=== PATIENT | male | born 1950 | race Caucasian/White ===

== ENCOUNTER → 2017-03-05 11:33 | Outpatient (CLI) | payer MEDICARE, BC ==
[2014-07-23 12:16] VITALS: BMI 28.7
[~2017-03-05 11:33] MED LIST: LIALDA1.2 G PO
== END | disposition home or self-care (01) ==
LOC: D.CT 11:33
DX: R10.9 Unspecified abdominal pain (principal)

== ENCOUNTER 2018-11-25 15:11 | Inpatient (IN) | payer MEDICARE, BC ==
[~2018-11-25] VITALS: Ht 177.8 cm; Wt 85.7 kg
[2018-11-25] MEDS ORDERED: AZULFIDINE ENT500 MG (15:40)
[2018-11-25] MEDS ORDERED: CINNAMON500 MG PO (15:44)
[2018-11-25] MEDS ORDERED: RED YEAST RICE600 MG PO (15:44)
[2018-11-25] MEDS ORDERED: CO Q-10100 MG PO (15:45)
[2018-11-25 16:08] LABS: BASOPHILS 0.1 % (0-2); EOSINOPHILS 1.6 % (0-7); HEMATOCRIT 39.8 % (42.0-54.0); HEMOGLOBIN 13.7 g/dL (13.5-17.5); IMMATURE GRANULOCYTES 0.3 % (0-5); MCH 31.6 pg (26.0-34.0); MCHC 34.4 g/dL (31.0-37.0); MCV 91.7 fL (80.0-100.0); MEAN PLATELET VOLUME 10.2 fL (7.4-10.4); MONOCYTES 7.7 % (2-11); NEUTROPHILS 82.3 % (40-80); PLATELET COUNT 195 10x3/uL (130-400); RBC 4.34 10x6/uL (4.20-6.10); RDW 13.6 % (11.5-14.5); WBC 8.7 10x3/uL (4.8-10.8)
[2018-11-25 16:26] LABS: ALBUMIN 2.8 g/dL (3.4-5.0); ANION GAP 11.4 mmol/L (8-16); BILIRUBIN - TOTAL 2.1 mg/dL (0.2-1.3); CALCIUM 8.4 mg/dL (8.5-10.1); CARBON DIOXIDE 30.6 mmol/L (21.0-32.0); CREATININE - SERUM 1.7 mg/dL (0.6-1.3); PROTEIN - SERUM 7.2 g/dL (6.4-8.2)
[2018-11-25 16:28] LABS: APPEARANCE CLEAR (CLEAR); BILIRUBIN NEGATIVE (NEGATIVE); COLOR YELLOW (YELLOW); GLUCOSE NEGATIVE (NEGATIVE); KETONE NEGATIVE (NEGATIVE); MAGNESIUM - SERUM 2.2 mg/dL (1.8-2.4); NITRITE NEGATIVE (NEGATIVE); PROTEIN TRACE mg/dL (NEGATIVE); UROBILINOGEN NORMAL (NORMAL)
[2018-11-25 18:16] VITALS: BP 115/53
--- NOTE | 2018-11-25 19:05 | NUR ---
PT TO CT AT THIS TIME.
--- NOTE | 2018-11-25 19:06 | NUR ---
PT REPORT HANDED OFF FROM CHAPINCITO SIMMONS RN. PT STABLE AT THIS TIME, CALL LIGHT WITHIN REACH WILL CONTINUE TO MONITOR.
[2018-11-25 19:15] VITALS: BP 153/78
[2018-11-25 20:00] VITALS: BP 119/54
[2018-11-25 20:12] VITALS: BP 164/77
--- NOTE | 2018-11-25 21:03 | NUR ---
REPORT CALLED TO NURSE DEBORAH. ROOM 5064
--- NOTE | 2018-11-25 21:03 | NUR ---
REPORT RECIEVED FROM CATHY IN ER.
--- NOTE | 2018-11-25 22:17 | NUR ---
PT ARRIVED TO ROOM 2135 FROM ER ACCOMPANIED BY . AMBULATORY, ABLE TO GET IN BED ON HIS OWN. IV FLAGYL UP AND INFUSING. PT'S WANTING TO KNOW WHEN PT WILL BE ABLE TO GET HIS AZULFIDINE MED. STATES ER TOLD THEM IT WOULD BE GIVEN ON THE FLOOR. EXPLAINED TO PATIENT THAT DR PANDEY WOULD HAVE TO BE CONTACTED FOR MED CONTINUATION DUE TO IT NOT BEING ORDERED AN ADMIT ORDER. CALL TO DR PANDEY AND RECIEVED ORDER TO CONTINUE HOME MED OF AZULFIDINE. ADMISSION HISTORY AND ASSESSMENT COMPLETED. HOME MEDS UPDATED. PLAN OF CARE INTIATED.
[2018-11-26 00:25] VITALS: BP 142/76
[2018-11-26 02:09] VITALS: BP 164/77; BMI 27.0
[2018-11-26 04:25] VITALS: BP 100/57
[2018-11-26 05:24] LABS: BASOPHILS 0.3 % (0-2); EOSINOPHILS 1.3 % (0-7); HEMATOCRIT 36.3 % (42.0-54.0); HEMOGLOBIN 12.5 g/dL (13.5-17.5); IMMATURE GRANULOCYTES 0.5 % (0-5); LYMPHOCYTES 10.1 % (15-50); MCH 31.3 pg (26.0-34.0); MCHC 34.4 g/dL (31.0-37.0); MCV 90.8 fL (80.0-100.0); MONOCYTES 9.3 % (2-11); NEUTROPHILS 78.5 % (40-80); PLATELET COUNT 215 10x3/uL (130-400); RDW 13.9 % (11.5-14.5); WBC 7.5 10x3/uL (4.8-10.8)
--- NOTE | 2018-11-26 05:27 | NUR ---
2ND DOSE OF FLAGYL UP AND INFUSING. PT RESTING WITH NO DISTRESS. MONITOR AND CPOC.
[2018-11-26 06:35] LABS: ALBUMIN 2.4 g/dL (3.4-5.0); ANION GAP 14.2 mmol/L (8-16); BILIRUBIN - TOTAL 1.15 mg/dL (0.2-1.3); CALCIUM 8.3 mg/dL (8.5-10.1); POTASSIUM - SERUM 3.2 mmol/L (3.5-5.1); PROTEIN - SERUM 6.4 g/dL (6.4-8.2)
[2018-11-26 06:39] LABS: CREATININE - SERUM 1.2 mg/dL (0.6-1.3)
--- NOTE | 2018-11-26 07:00 | NUR ---
RECEIVED REPORT. ASSUMED CARE OF PATEINT. CALL LIGHT WITHIN REACH. PATIENT AWAKE, LYING IN BED. FEMALE AT BEDSIDE WITH PATIENT. PATIENT STATES HE WAS UP ALL NOC URINATING. DENIES NEEDS AT THIS TIME. NO DISTRESS.
[2018-11-26] MEDS ORDERED: AZULFIDINE500 MG PO (08:28)
[2018-11-26 08:41] VITALS: BP 95/53
--- NOTE | 2018-11-26 11:45 | NUR ---
FRESH ICE WATER PROVIDED TO PATIENT. VISITORS AT BEDSIDE. PATIENT DENIES ANY NEEDS AT THIS TIME. CALL LIGHT WITHIN REACH. NO DISTRESS.
[2018-11-26 12:28] VITALS: BMI 27.1
[2018-11-26 14:12] VITALS: Ht 177.8 cm; Wt 85.7 kg
--- NOTE | 2018-11-26 14:22 | NUR ---
PT NOT NPO PER FAMILY AND HAS HIS GB STILL / GAVE INSTRUCTIONS TO KEEP NPO AFTER MIDNIGHT AND I WILL GO AND PUT NPO SIGN ON DOOR / GCAPHOEBE,RDMS
[2018-11-26 14:25] LABS: % SATURATION 24 % (15-55); IRON 45 ug/dl (35-150); TOTAL IRON BIND CAPACITY 185 ug/dl (260-445); UNSAT IRON BIND CAPACITY 140 ug/dl (150-375)
--- NOTE | 2018-11-26 15:02 | NUR ---
medicated for headache at this time.
--- NOTE | 2018-11-26 15:20 | NUR ---
K+ SUPPLEMENT ADMINISTERED FOR LOW K+ AT THIS TIME.
--- NOTE | 2018-11-26 19:30 | NUR ---
ROUNDS COMPLETED. VSS, WITH SLIGHTLY ELEVTAED TEMP. OF 100.1. AAOX4, NO S/S OF RR DISTRESS. AT BEDSIDE. MEDS GIVEN AT THIS TIME. PT STATES HE IS JUST TRYING TO REST AT THE MOMENT. WILL CPOC. CL IN REACH, BED IN LOW, SR UPX2.
[2018-11-26 20:00] VITALS: BP 134/70
--- NOTE | 2018-11-26 20:45 | NUR ---
2TABS 325MG OF TYLENOL GIVEN TO PT AT THIS TIME. WILL CTM.
--- NOTE | 2018-11-26 21:36 | NUR ---
REASSESED PT TEMP. PT TEMP NOW 99.9 WILL CTM, AT BEDSIDE.
[2018-11-27] VITALS: BP 120/64
--- NOTE | 2018-11-27 02:42 | NUR ---
PT PLACED ON TELEMETRY. WILL CPOC.
[2018-11-27 04:00] VITALS: BP 126/71
[2018-11-27 05:47] LABS: BASOPHILS 0.3 % (0-2); EOSINOPHILS 1.3 % (0-7); HEMATOCRIT 36.3 % (42.0-54.0); HEMOGLOBIN 12.4 g/dL (13.5-17.5); IMMATURE GRANULOCYTES 0.5 % (0-5); LYMPHOCYTES 12.5 % (15-50); MCH 31.2 pg (26.0-34.0); MCHC 34.2 g/dL (31.0-37.0); MCV 91.2 fL (80.0-100.0); MEAN PLATELET VOLUME 9.9 fL (7.4-10.4); MONOCYTES 8.4 % (2-11); RBC 3.98 10x6/uL (4.20-6.10); RDW 13.8 % (11.5-14.5); WBC 7.5 10x3/uL (4.8-10.8)
[2018-11-27 06:14] LABS: HEPATITIS C ANTIBODY <0.1 S/CO RAT (0.0-0.9)
[2018-11-27 06:23] LABS: ALBUMIN 2.4 g/dL (3.4-5.0); ALKALINE PHOSPHATASE 176 U/L (46-116); BILIRUBIN - TOTAL 0.84 mg/dL (0.2-1.3); CALCIUM 8.2 mg/dL (8.5-10.1); CARBON DIOXIDE 26.1 mmol/L (21.0-32.0); CHLORIDE - SERUM 101 mmol/L (98-107); CREATININE - SERUM 0.9 mg/dL (0.6-1.3); GLUCOSE 128 mg/dL (74-106); POTASSIUM - SERUM 3.4 mmol/L (3.5-5.1); PROTEIN - SERUM 6.2 g/dL (6.4-8.2); SODIUM 137 mmol/L (136-145); eGFR NON AFRICAN AMERICAN 89 mL/min (90-120)
[2018-11-27 06:25] LABS: ALT (SGPT) 145 U/L (10-68); CALC OSMOLALITY 274 mosm/kg (275-300); UREA NITROGEN 10 mg/dL (7-18)
[2018-11-27 07:29] LABS: FOLATE (FOLIC ACID) - SERUM 3.9 ng/mL (>3.0)
[2018-11-27 07:37] LABS: PLATELET COUNT 272 10x3/uL (130-400)
--- NOTE | 2018-11-27 08:00 | NUR ---
PT RESTING IN BED. SHIFT ASSESSMENT PERFORMED. PT CONTINUES TO BE NPO FOR ULTRASOUND AND MRI. DENIES ANY PAIN AT THIS TIME, DENIES ANY OTHER NEEDS AT THIS TIME, CALL LIGHT IN REACH. SPOUSE AT BEDSIDE
[2018-11-27 08:34] VITALS: BP 115/70
[2018-11-27 11:31] VITALS: BP 124/60
--- NOTE | 2018-11-27 12:30 | NUR ---
PT TOLERATED REGULAR DIET WELL, NO COMPLAINTS OF N/V. DENIES PAIN AT THIS TIME, DENIES ANY OTHER NEEDS AT THIS TIME
[2018-11-27 16:17] VITALS: BP 110/47
--- NOTE | 2018-11-27 17:33 | NUR ---
PT RESTING IN BED. SPOUSE AT BEDSIDE. DENIES PAIN AT THIS TIME, DENIES ANY OTHER NEEDS AT THIS TIME, CALL LIGHT WITHIN REACH. WILL CONT TO FOLLOW PLAN OF CARE
--- NOTE | 2018-11-27 19:05 | NUR ---
BED LOW AND SRX2 CALL LIGHT IS IN REACH FAMILY IS AT THE BEDSIDE. LCTA AND BOWEL SOUNDS X4 DENIES ABD PAIN AT THIS TIME
[2018-11-27 20:00] VITALS: BP 115/62
--- NOTE | 2018-11-27 22:10 | NUR ---
REBECCA 3.6 NO PROTOCAL DOSE NEEDED
[2018-11-28 00:30] VITALS: BP 125/75
--- NOTE | 2018-11-28 04:38 | NUR ---
I have reviewed this patient and I concur with the Shift Assessment completed by the Licensed Practical Nurse today this shift.
[2018-11-28 05:00] VITALS: BP 125/75
[2018-11-28 07:09] LABS: BASOPHILS 0.5 % (0-2); EOSINOPHILS 2.1 % (0-7); HEMATOCRIT 37.4 % (42.0-54.0); HEMOGLOBIN 12.7 g/dL (13.5-17.5); IMMATURE GRANULOCYTES 0.9 % (0-5); LYMPHOCYTES 23.1 % (15-50); MCH 30.8 pg (26.0-34.0); MCV 90.8 fL (80.0-100.0); MEAN PLATELET VOLUME 9.4 fL (7.4-10.4); MONOCYTES 16.3 % (2-11); NEUTROPHILS 57.1 % (40-80); PLATELET COUNT 278 10x3/uL (130-400); RBC 4.12 10x6/uL (4.20-6.10); RDW 13.7 % (11.5-14.5)
[2018-11-28 07:31] LABS: ALBUMIN 2.3 g/dL (3.4-5.0); ALKALINE PHOSPHATASE 166 U/L (46-116); ALT (SGPT) 109 U/L (10-68); AMYLASE - SERUM 125 U/L (25-115); BILIRUBIN - DIRECT 0.28 mg/dL (0.00-0.30); BILIRUBIN - TOTAL 0.58 mg/dL (0.2-1.3); CALC OSMOLALITY 275 mosm/kg (275-300); CALCIUM 8.5 mg/dL (8.5-10.1); CARBON DIOXIDE 25.3 mmol/L (21.0-32.0); CHLORIDE - SERUM 102 mmol/L (98-107); CREATININE - SERUM 0.8 mg/dL (0.6-1.3); GLUCOSE 150 mg/dL (74-106); LIPASE 1241 U/L (73-393); PROTEIN - SERUM 6.2 g/dL (6.4-8.2); SODIUM 137 mmol/L (136-145); UREA NITROGEN 11 mg/dL (7-18); eGFR NON AFRICAN AMERICAN > 90 mL/min (90-120)
[2018-11-28 07:53] LABS: WBC 5.6 10x3/uL (4.8-10.8)
[2018-11-28 08:32] VITALS: BP 114/67
[2018-11-28] MEDS ORDERED: LEVOFLOXACIN500 MG PO (11:59)
[2018-11-28] MEDS ORDERED: FLAGYL500 MG PO (11:59)
[2018-11-28] MEDS ORDERED: PROTONIX40 MG PO (11:59)
[2018-11-28 12:04] VITALS: BP 123/71
--- NOTE | 2018-11-28 14:12 | NUR ---
DISCHARGE ORDER RECIEVED. PT REQUEST THAT HIS PIV AND TELEMETRY BE REMOVED. PIV TO PT RIGHT HAND REMOVED WITH CATHETER TIP INTACT. TELEMETRY REMOVED AND GIVEN TO DAIRY FARM OPERATOR.
--- NOTE | 2018-11-28 14:45 | NUR ---
DISCHARGE INSTRUCTIONS REVIEWED WITH PT, ALL QUESTIONS ANSWERED.
--- NOTE | 2018-11-28 14:56 | NUR ---
PT TAKEN TO FRONT OF HOSPITAL AND LEFT WITH HIS
--- NOTE | 2018-11-28 16:35 | MORECARE ---
CASE MANAGEMENT DISCHARGE SUMMARY PATIENT: KARYN ARCOS UNIT: [id number] ADM DATE: 11/25/18 AGE: 68 : 48 SEX: M ROOM/BED: D.2135 AUTHOR: WINNIE CRUZ PHYSICIAN: REFERRING PHYSICIAN: LEONARD PANDEY MD DATE OF SERVICE: 11/28/18 Discharge Plan Patient Name: KARYN ARCOS Facility: [facility]:[place] : 1950 Planned Disposition: Home Anticipated Discharge Date: 11/28/18 Discharge Date: 11/28/2018 Expected LOS: 3 Initial Reviewer: [id number] Initial Review Date: 11/28/2018 Generated: 11/28/18 5:35 pm Coverage Notice Reviewer: [id number] - Sushant Reyes Notice Issued Date-Time: 11/28/2018 13:00 Notice Type: IM Discharge Notice Notice Delivered To: Patient Relationship to Patient: Continuous Improvement Facilitator Name: Delivery Method: HAND - Hand Delivered Adriana Days: Prior Verbal Notification: Recipient Understood Notice: Yes Recipient Signature: Yes Med Rec Note Co-signed by Attending: Coverage Notice Comment: Patient Name: KARYN ARCOS Page [id number] at 1635 All edits/amendments must be made on the electronic document DICTATION DATE: 11/28/18 1635 CELL INSPECTOR: ZOEY 11/28/18 1635 RPT#: [id number] DC DATE:11/28/18 STATUS: DIS IN [id number] [place] [address] END OF REPORT
--- NOTE | 2018-11-28 16:46 | MORECARE ---
CASE MANAGEMENT DISCHARGE SUMMARY PATIENT: KARYN ARCOS UNIT: [id number] ADM DATE: 11/25/18 AGE: 68 : 46 SEX: M ROOM/BED: D.6661 AUTHOR: NANCY,DOC PHYSICIAN: REFERRING PHYSICIAN: LEONARD PANDEY MD DATE OF SERVICE: 11/28/18 Discharge Plan Patient Name: KARYN ARCOS Facility: [facility]:[place] : 1950 Planned Disposition: Home Anticipated Discharge Date: 11/28/18 Discharge Date: 11/28/2018 Expected LOS: 3 Initial Reviewer: [email or web address] Initial Review Date: 11/28/2018 Generated: 11/28/18 5:46 pm Comments DCP- Discharge Planning Updated by [email or web address]: Sushant Reyes on 11/28/18 3:[address] Patient Name: KARYN ARCOS Encounter No: [id number] : 1950 Primary Insurance: MEDICARE A & B Anticipated DC Date: 11-28-2018 Planned Disposition: Home DCP NOTE: CM MET WITH PT IN ROOM TO DISCUSS DISCHARGE PLANNING AND NEEDS. KARYN ARCOS provided verbal consent to discuss current and ongoing needs with/in the presence of: SPOUSE, SERENA. PT REPORTS LIVING AT HOME INDEPENDENTLY WITH SPOUSE. PT HAS NO MEDICAL EQUIPMENT AND NO OUTSIDE SERVICES ASSISTING IN THE HOME. CM DISCUSSED AVAILABILITY OF HOME HEALTH, REHAB SERVICES AND MEDICAL EQUIPMENT. PT DENIES DISCHARGE NEEDS, REPORTS HIS SPOUSE IS HER TO PICK HIM UP FOR DISCHARGE HOME TODAY. IMPORTANT MESSAGE FROM MEDICARE PROVIDED AND EXPLAINED. ASSISTANT PRINTER FLOOR COVERING NURSE NOTIFIED. TAMMY Henderson DCPIA - Discharge Planning Initial Assessment Updated by [id number]: Sushant Reyes on 11/28/18 4:36 pm * Is the patient Alert and Oriented? Yes * How many steps to enter\exit or inside your home? NONE * PCP DR. RODRIGUEZ OR MICHAEL NAVARRO * Pharmacy [address] * Preadmission Environment Home with Family * ADLs Independent * Equipment None * Other Equipment NO MEDICAL EQUIPMENT PROVIDER PREFERENCE * List name and contact numbers for known caregivers / representatives who currently or will assist patient after discharge: ARNIE LIMA, * Verbal permission to speak to the caregivers and representatives has been obtained from the patient. Yes * Community resources currently utilized None * Please name any agencies selected above. NONE * Additional services required to return to the preadmission environment? No * Can the patient safely return to the preadmission environment? Yes * Has this patient been hospitalized within the prior 30 days at any hospital? No Coverage Notice Reviewer: [id number] Carrie Reyes Notice Issued Date-Time: 11/28/2018 13:00 Notice Type: IM Discharge Notice Notice Delivered To: Patient Relationship to Patient: Field Geologist Name: Delivery Method: HAND - Hand Delivered Adriana Days: Prior Verbal Notification: Recipient Understood Notice: Yes Recipient Signature: Yes Med Rec Note Co-signed by Attending: Coverage Notice Comment: Last DP export: 11/28/18 3:35 p Patient Name: KARYN ARCOS Page [id number] at 1646 All edits/amendments must be made on the electronic document DICTATION DATE: 11/28/181644 [employer] ADVISOR: ZOEY 11/28/181644 RPT#: [id number] DC DATE:11/28/18 STATUS: DIS IN [facility] [address] [place] [address] END OF REPORT
[2018-11-29 13:15] LABS: CEA 1.7 ng/mL (0.0-4.7)
== END 2018-11-28 15:06 | disposition home or self-care (01) | DRG 392 ==
LOC: D.ER 15:11 → D.EDHOLD 20:25 → D.M2 20:25
PROVIDERS: Family Medicine; Internal Medicine Gastroenterology; ADMIT Internal Medicine Nephrology; ATTEND Internal Medicine Nephrology
DX: K57.32 Diverticulitis of large intestine without perforation or abscess without bleeding (principal); R17 Unspecified jaundice; N17.9 Acute kidney failure, unspecified; E87.1 Hypo-osmolality and hyponatremia; K51.90 Ulcerative colitis, unspecified, without complications; E80.6 Other disorders of bilirubin metabolism; R74.0 Nonspecific elevation of levels of transaminase and lactic acid dehydrogenase [LDH]; E87.6 Hypokalemia; D50.9 Iron deficiency anemia, unspecified

== ENCOUNTER → 2019-01-10 11:53 | Outpatient (CLI) | payer MEDICARE, BC ==
[2018-11-26 14:12] VITALS: BMI 27.1
[~2019-01-10 11:53] MED LIST changes: +AZULFIDINE ENT500 MG; +AZULFIDINE500 MG PO; +CINNAMON500 MG PO; +CO Q-10100 MG PO; +FLAGYL500 MG PO; +LEVOFLOXACIN500 MG PO; +PROTONIX40 MG PO; +RED YEAST RICE600 MG PO
== END | disposition home or self-care (01) ==
LOC: D.LAB 11:53
PROVIDERS: ATTEND Urology
DX: N40.0 Benign prostatic hyperplasia without lower urinary tract symptoms (principal)

== ENCOUNTER → 2019-03-14 08:58 | Outpatient (CLI) | payer MEDICARE, BC ==
[2018-11-26 14:12] VITALS: BMI 27.1
[2019-03-14 09:25] LABS: BASOPHILS 0.2 % (0-2); EOSINOPHILS 0.4 % (0-7); HEMATOCRIT 43.7 % (42.0-54.0); IMMATURE GRANULOCYTES 0.2 % (0-5); LYMPHOCYTES 16.3 % (15-50); MCHC 34.3 g/dL (31.0-37.0); MEAN PLATELET VOLUME 9.9 fL (7.4-10.4); MONOCYTES 9.1 % (2-11); NEUTROPHILS 73.8 % (40-80); PLATELET COUNT 209 10x3/uL (130-400); RBC 4.55 10x6/uL (4.20-6.10); RDW 13.2 % (11.5-14.5); WBC 5.5 10x3/uL (4.8-10.8)
[2019-03-14 09:35] LABS: ALBUMIN 4.1 g/dL (3.4-5.0); BILIRUBIN - DIRECT 0.09 mg/dL (0.00-0.30); BILIRUBIN - INDIRECT 0.33 mg/dL (0.00-1.00); BILIRUBIN - TOTAL 0.42 mg/dL (0.2-1.3); PROTEIN - SERUM 7.4 g/dL (6.4-8.2)
== END | disposition home or self-care (01) ==
LOC: D.LAB 08:58
PROVIDERS: ATTEND Internal Medicine Gastroenterology
DX: K51.90 Ulcerative colitis, unspecified, without complications (principal); F19.90 Other psychoactive substance use, unspecified, uncomplicated

== ENCOUNTER → 2019-04-24 07:38 | Outpatient (CLI) | payer MEDICARE, BC ==
[2018-11-26 14:12] VITALS: BMI 27.1
== END | disposition home or self-care (01) ==
LOC: D.LAB 07:38
PROVIDERS: ATTEND Internal Medicine Gastroenterology
DX: K51.90 Ulcerative colitis, unspecified, without complications (principal)

== ENCOUNTER 2019-07-24 03:48 | Outpatient (CLI) | payer MEDICARE, BC ==
[~2019-07-24] VITALS: Ht 177.8 cm; Wt 83.6 kg
--- NOTE | ~2019-07-24 | HEMODYNAMI ---
PATIENT:KARYN ARCOS MEDICAL RECORD: [id number] : 46 LOCATION:[address] [facility]# [id number] ADMISSION DATE: 07/24/19 Generatedon:07/25/201914:08 Patient name: KARYN ARCOS Patient #: [id number] SSN: [id number] : 1950 Date of study: 07/25/2019 Page: Of Hemodynamic Procedure Report Patient Data Patient Demographics Procedure consent was obtained First Name: KARYN Gender: Male Last Name: ISRRAEL : 1950 [facility] Initial: Vishnu Age: 69 year(s) Patient #: [id number] Race: SSN: [id number] Additional ID: [id number] Contact details Address: [address] [place] [address] State: [place] City: [facility] Zip code: [address] Admission Admission Data Admission Date: 07/24/2019 Admission Time: 5:25 Arrival Date: 07/18/2019 Arrival Time: 5:25 Admit Source: Other Insurance Payor: Medicare Room #: D.2133 [facility] #: [id number] Height (in.): 70.08 BSA: 2.02 (m2) Height (cm.): 178 BMI: 26.51 (kg/m2) Weight (lbs.): 185.19 Weight (kg.): 84 Procedure Procedure Types Cath Procedure Diagnostic Procedure LHC LHC w/Coronaries Sedation Charges Moderate Sedation up to 30 minutes PCI Procedure Coronary Stent Coronary Stent Initial Procedure Description Procedure Date Procedure Date: 07/25/2019 Procedure Start Time: 13:22 Procedure End Time: 13:58 Procedure Staff Name Function Jair Mayer MD Performing Physician Shahida Campbell RT Monitor Marlen Kaplan RT Scrub Rogelio Stevenson RN Nurse Procedure Data Cath Procedure Fluoroscopy Diagnostic fluoroscopy Total fluoroscopy Time: time: 10.3 min 10.3 min Diagnostic fluoroscopy Total fluoroscopy dose: dose: 1373 mGy 1373 mGy Contrast Material Contrast Material Type Amount (ml) Isovue 300 111 Entry Location Entry Primary Successful Side Size Upsize Upsize Entry Closure Yates ccessful Closure Location (Fr) 1 (Fr) 2 (Fr) Remarks Device Remarks Radial Right 6 Fr Mechanical artery Short Compression Femoral Right 6 Fr 6 Fr 6 Fr Exoseal artery Short Long Short Estimated blood loss: 5 ml Diagnostic catheters Device Type Used For End Catheter Placement DIAGNOSTIC [place] 110cm 5 Multi-vessel Fr catheter ([id number]) Angiography DIAGNOSTIC JL 5 5Fr Left Coronary catheter ([id number]) Angiography DIAGNOSTIC Pigtail 5Fr Multi-vessel catheter (191277L) Angiography Procedure Complications No complications Procedure Medications Medication Administration Route Dosage Oxygen etCO2 Nasal cannula 2 l/min Lidocaine 2% added to field 20 Heparin Flush Bag added to field 2 bags (1000units/500ml NS) 0.9% NaCl I.V. 100 ml/hr Radial Cocktail I.A. 1 syringe (Verapamil 2mg/Nitro 400mcg/Heparin 1500units) Versed I.V. 1 mg Fentanyl I.V. 50 mcg Versed I.V. 1 mg Fentanyl I.V. 50 mcg Versed I.V. 1 mg Heparin Bolus I.V. 4000 units Integrilin (Bolus I.V. 7.3 ml 2mg/ml) Versed I.V. 1 mg Plavix P.O. 600 mg Hemodynamics Rest BSA: 2.02 (m2) O2 Consumption: Estimated: 223.13 (ml/min) O2 Consumption indexed : Estimated:110.46 (ml/min/m) Heart Rate: 56 (bpm) Pressure Samples Time Site Value (mmHg) Purpose Heart Use Rate(bpm) 13:45 LV 112/2,4 Snapshot 58 Gradients Valve Time Site Site Mean SEP/DFP Peak To Heart Use 1 2 (mmHg) (sec/min) Peak Rate (mmHg) (bpm) Aortic 13:45 LV AO 57 Snapshots Pre Cath Intra NCS Post Cath Vital Signs Time Heart Resp SPO2 etCO2 NIBP Rhythm Pain Sedation Rate (ipm) (%) (mmHg) (mmHg) Status Level (bpm) 13:13:24 60 12 92 4.4 127/72(99) NSR 0 (11) 10(A) , No pain 13:17:36 56 14 92 20.2 120/74(97) NSR 0 (11) 10(A) , No pain 13:21:46 57 14 93 17.9 130/74(96) NSR 0 (11) 10(A) , No pain 13:26:02 58 11 96 27.7 117/63(89) NSR 0 (11) 9(A) , No pain 13:30:14 54 12 96 9.7 111/63(87) NSR 0 (11) 9(A) , No pain 13:34:22 58 13 96 12.7 118/65(85) NSR 0 (11) 9(A) , No pain 13:38:33 56 10 98 12 116/65(88) NSR 0 (11) 9(A) , No pain 13:42:43 57 15 96 33.7 118/67(84) NSR 0 (11) 9(A) , No pain 13:46:56 59 15 95 39.7 111/66(91) NSR 0 (11) 9(A) , No pain 13:51:05 62 16 95 34.4 108/58(77) NSR 0 (11) 9(A) , No pain 13:55:13 61 13 97 31.4 91/64(79) NSR 0 (11) 10(A) , No pain 14:00:10 56 12 98 0 112/64(79) NSR 0 (11) 10(A) , No pain Medications Time Medication Route Dose Verified Delivered Reason Not es Effectiveness by by 13:13:27 Oxygen etCO2 2 l/min Jair Mercado used for Nasal St Rahat Stevenson RN procedure cannula 13:13:35 Lidocaine 2% added 20ml Jair Adam for local to vial [facility] anesthetic field MD FLOWERS 13:13:41 Heparin Flush added 2 bags Jair Adam used for Bag to [facility] procedure (1000units/500ml field MD FLOWERS NS) 13:13:49 0.9% NaCl I.V. 100 Jair Mercado Per physician ml/hr St Rahat Stevenson RN, MD 13:20:13 Versed I.V. 1 mg Jair Mercado for sedation St Rahat Stevenson RN, MD 13:20:18 Fentanyl I.V. 50 mcg Jair Mercado for sedation St Rahat Stevenson RN, MD 13:24:58 Radial Cocktail I.A. 1 Jair Adam for (Verapamil syringe St Rahat Mayer vasodilation 2mg/Nitro MD FLOWERS 400mcg/Heparin 1500units) 13:26:13 Versed I.V. 1 mg Jair Mercado for sedation St Rahat Stevenson RN, MD 13:26:17 Fentanyl I.V. 50 mcg Jair Mercado for sedation St Rahat Stevenson RN, MD 13:34:22 Versed I.V. 1 mg Jair Mercado for sedation St Rahat Stevenson RN, MD 13:46:47 Heparin Bolus I.V. 4000 Jair Mercado for ramiro ified units St Rahat Stevenson RN anticoagulation with dr MD shi 13:46:59 Integrilin I.V. 7.3 ml Jair Mercado for was mil (Bolus 2mg/ml) St Rahat Stevenson RN antiplatelet 2.7 ml therapy of vial 13:49:19 Versed I.V. 1 mg Jair Mercado for sedation St Rahat Stevenson RN, MD 14:03:06 Plavix P.O. 600 [address] for St Rahat Stevenson RN antiplatelet therapy Procedure Log Time Note 12:40:13 Rogelio Stevenson RN sent for patient. Start room use. 12:58:41 Informed consent obtained and on chart 12:58:55 Diagnostic Cath Status : Elective 12:59:18 Time tracking: Regular hours (M-F 7:00 - 5:00) 12:59:22 Plan of Care:Hemodynamics will remain stable., Cardiac rhythm will remain stable., Comfort level will be maintained., Respiratory function will remain adequate., Patient/ family verbilizes understanding of procedure., Procedure tolerated without complication., Recovers from procedure without complications.. 12:59:27 Patient received from Med II to CCL 2 Alert and oriented. Tansferred to table in Supine position. 12:59:28 Warm blankets applied, and javan hugger turned on for patient comfort. 12:59:28 Correct patient and procedure confirmed by team. 12:59:29 ECG and BP/O2 sat monitors applied to patient. 13:00:47 Admit Source: Other 13:00:49 Arrival Date: 07/18/2019 5:25:00 AM 13:01:21 Insurance Payor : Medicare 13:01:29 Patient Height : 70.08 inches 13:01:33 Patient Weight : 185.19 lbs 13:12:16 Vital chart was started 13:12:17 Baseline sample Acquired. 13:12:20 Rhythm: sinus rhythm 13:12:22 Full Disclosure recording started 13:12:27 H&P Date Dictated: 07/25/2019 New H&P dictated by physician.. 13:12:29 Pre-procedure instructions explained to patient. 13:12:29 Pre-op teaching completed and patient verbalized understanding. 13:12:32 Family in patients room. 13:12:34 Patient NPO since Midnight. 13:12:36 Is the patient allergic to Iodine/contrast media? No. 13:12:37 Was the patient premedicated? Yes 13:12:38 Is patient on blood thinner?No 13:12:40 Patient diabetic? Yes. 13:12:41 If diabetic: On Metformin? No 13:12:45 Previous problem with sedation/anesthesia? No ? 13:12:47 Snore? No 13:12:48 Sleep apnea? No 13:12:49 Deviated septum? No 13:12:56 Opens mouth fully? Yes 13:12:57 Sticks out tongue? Yes 13:12:59 Airway obstruction? No ? 13:13:01 Dentures? No ? 13:13:06 Pre procedure: right dorsailis pedis pulse 2+ Normal; easily identifiable; not easily obliterated 13:13:08 Pre procedure: left dorsailis pedis pulse 2+ Normal; easily identifiable; not easily obliterated 13:13:10 Patient pain scale 0/10 ?. 13:13:18 IV patent on arrival in left forearm with 0.9% NaCl at [facility]. 13:13:20 Lab results completed and on chart. 13:13:25 Stress Test: no; N/A ? 13:13:27 Oxygen 2 l/min etCO2 Nasal cannula was administered by Rogelio Stevenson RN; used for procedure; Verbal order read back and verified. 13:13:35 Lidocaine 2% 20ml vial added to field was administered by Jair Mayer MD; for local anesthetic; Verbal order read back and verified. 13:13:41 Heparin Flush Bag (1000units/500ml NS) 2 bags added to field was administered by Jair Mayer MD; used for procedure; Verbal order read back and verified. 13:13:49 0.9% NaCl 100 ml/hr I.V. was administered by Rogelio Stevenson RN; Per physician; Verbal order read back and verified. 13:19:08 Risk of Mortality: 2.1 13:19:11 Risk of blood transfusion: 0.3 13:19:16 Risk of JESSICA: 5.7 13:19:21 Right Radial & Right Groin area was prepped with chlora-prep and draped in sterile fashion 13:19:28 Alarms reviewed by R. N. 13:19:28 Sharps counted by scrub and verified by R.N. 13:19:29 Physician arrived 13:19:30 --------ALL STOP TIME OUT------ 13:19:30 Final Timeout: patient, procedure, and site verified with staff and physician. All members of the team are in agreement. 13:19:33 Right Radial & Right Groin site verified by team. 13:19:36 Fire Safety Assessment: A--An alcohol-based skin anteseptic being used preoperatively., C--Open oxygen or nitrous oxide is being used., D--An ESU, laser, or fiber-optic light is being used. 13:19:39 Physical assessment completed. ASA score P 2 - A patient with mild systemic disease as per Jair Mayer MD. 13:19:58 2) 60-89 Mildly reduced kidney function, and other findings (as for stage 1) point to kidney disease. 13:20:13 Versed 1 mg I.V. was administered by Rogelio Stevenson RN; for sedation; Verbal order read back and verified. 13:20:18 Fentanyl 50 mcg I.V. was administered by Rogelio Stevenson RN; for sedation; Verbal order read back and verified. 13:20:21 Maximum allowable contrast dose (3.7 X eGFR X 0.75)244 ml. 13:20:29 Sedation plan: IV Moderate Sedation Medication:Versed, Fentanyl 13:20:32 Use device set Radial Dx or PCI 13:20:33 ACIST Syringe (31845) opened to sterile field. 13:20:33 Medline Cath Pack ([id number]) opened to sterile field. 13:20:34 Bag Decanter () opened to sterile field. 13:20:34 ACIST Hand Control (29195) opened to sterile field. 13:20:34 ACIST Manifold (23388) opened to sterile field. 13:20:35 Tegaderm 4 x 4 (1626W) opened to sterile field. 13:20:36 MBrace Wrist Support (086985418) opened to sterile field. 13:20:47 SHEATH 6FR RAIN (2742432) opened to sterile field. 13:20:48 EMERALD Guide Wire (502-687) opened to sterile field. 13:20:59 Zero performed for pressure channel P1 13:22:07 Procedure started. 13:22:12 Local anesthetic to right radial artery with Lidocaine 2% by Jair Mayer MD.INITIAL ACCESS ONLY 13:23:37 A 6 Fr Short sheath was inserted into the Right Radial artery 13:24:21 A DIAGNOSTIC [place] 110cm 5 Fr catheter (023672) was advanced over the wire and used for Multi-vessel Angiography. 13:24:58 Radial Cocktail (Verapamil 2mg/Nitro 400mcg/Heparin 1500units) 1 syringe I.A. was administered by Jair Mayer MD; for vasodilation; Verbal order read back and verified. 13:26:10 LCA angiography performed. 13:26:13 Versed 1 mg I.V. was administered by Rogelio Stevenson RN; for sedation; Verbal order read back and verified. 13:26:17 Fentanyl 50 mcg I.V. was administered by Rogelio Stevenson RN; for sedation; Verbal order read back and verified. 13:28:25 GUIDE 6FR XBLAD 3.5 catheter ([id number]) opened to sterile field. 13:28:26 GUIDE 6FR HS I catheter (LA6HSI) opened to sterile field. 13:31:31 6 Fr XBLAD 3.5 guide catheter was inserted over the wire 13:31:35 Guide Catheter removed. unable to cannulate vessel. 13:31:53 6 Fr HS 1 guide catheter was inserted over the wire 13:31:58 RCA angiography performed. 13:32:06 Injector settings: Ml/sec: 3, Volume: 6, 13:32:52 SHEATH 6FR [place] (UPN568) opened to sterile field. 13:32:53 INFLATOR Merit BasixCompak (IT1126) opened to sterile field. 13:32:53 WHISPER 300cm guide wire ([id number]) opened to sterile field. 13:33:00 Catheter removed. 13:33:28 Local anesthetic to right femoral artery with Lidocaine 2% by Jair Mayer MD.ADDITIONAL ACCESS 13:33:46 A 6 Fr Short sheath was inserted into the Right Femoral artery 13:34:22 Versed 1 mg I.V. was administered by Rogelio Stevenson RN; for sedation; Verbal order read back and verified. 13:39:07 SHEATH 6FR [place] (RSR01) opened to sterile field. 13:39:15 Sheath upsized to a 6 Fr Long. 13:42:02 A DIAGNOSTIC JL 5 5Fr catheter ([id number]) was advanced over the wire and used for Left Coronary Angiography. 13:42:13 LCA angiography performed. 13:43:12 Catheter removed. 13:44:11 A DIAGNOSTIC Pigtail 5Fr catheter ([id number]) was advanced over the wire and used for Multi-vessel Angiography. 13:44:19 ACCDominant side:Right 13:45:09 LV hemodynamics recorded. 13:45:10 LV gram done using CORTES 13:45:13 Injector settings: Ml/sec: 5, Volume: 15, 13:45:23 EF : 55 % 13:45:34 Catheter removed. 13:45:57 Proceeding to intervention. 13:46:08 6 Fr HS 1 SH guide catheter was inserted over the wire 13:46:47 Heparin Bolus 4000 units I.V. was administered by Rogelio Stevenson RN; for anticoagulation; verified with dr shi Verbal order read back and verified. 13:46:59 Integrilin (Bolus 2mg/ml) 7.3 ml I.V. was administered by Rogelio Stevenson RN; for antiplatelet therapy; wasted 2.7 ml of vial Verbal order read back and verified. 13:49:08 GUIDE 6FR HS I SH catheter ([id number]) opened to sterile field. 13:49:19 Versed 1 mg I.V. was administered by Rogelio Stevenson RN; for sedation; Verbal order read back and verified. 13:49:41 WHISPER wire advanced. 13:50:14 Wire advanced across lesion. 13:51:24 Place stent Inflation Number: 1 A MENDOZA OTW 3.0 x 12 stent ([id number]) was prepped and advanced across the Prox RCA 80. The stent was deployed at 14 STACEY for 0:30 (min:sec) 0. 13:54:04 Stent catheter was removed intact over wire. 13:55:28 Place stent Inflation Number: 2 A MENDOZA RX 3.0 x 12 stent ([id number]) was prepped and advanced across the Prox RCA 80. The stent was deployed at 14 STACEY for 0:30 (min:sec) 0. 13:56:06 Stent catheter was removed intact over wire. 13:56:06 Wire removed. 13:56:07 Guide catheter removed. 13:56:23 Sheath upsized to a 6 Fr Short. 13:56:33 Sheath removed intact; hemostasis achieved with Exoseal to the Right Femoral artery. 13:56:40 [place] band inflated with 10cc of air. 13:56:40 ACT drawn and resulted at 210 seconds. (normal therapeutic range 180-240 seconds). 13:56:40 Sheath removed intact; hemostasis achieved with Mechanical Compression to the Right Radial artery. 13:56:42 Procedure ended.(Physican Out) 13:56:52 Fluoroscopy time 10.30 minutes. 13:56:56 Flurop Dose total: 1373 13:56:56 Fluoroscopy dose: 1373 mGy 13:57:03 Dose Area Product 78362 mGy/cm. 13:57:07 Contrast amount:Isovue 300 111ml. 13:57:09 Maximum allowable dose exceeded? No. 13:57:11 Sharps counted by scrub and verified by R.N. 13:57:11 Insertion/operative site no bleeding no hematoma. 13:57:14 Post-op/insertion site Right Femoral artery dressed using a 4 x 4 and Tegaderm. 13:57:17 Post procedure rhythm: unchanged. 13:57:20 Estimated blood loss: 5 ml 13:57:28 ZEPHYR REGULAR TR BAND (655597) opened to sterile field. 13:57:42 EXOSEAL 6Fr (EX600) opened to sterile field. 13:58:17 Post procedure instruction explained to patient.Patient verbalizes understanding. 13:58:17 Patient needs reinforcement of post procedure teaching. 13:58:30 Procedure type changed to Cath procedure, Diagnostic procedure, LHC, [facility] w/Coronaries, Sedation Charges, Moderate Sedation up to 30 minutes, PCI procedure, Coronary Stent, Coronary Stent Initial 13:58:31 Procedure and supply charges have been captured, reviewed, submitted and are correct. 13:58:36 Procedure Complication : No complications 13:58:38 Vital chart was stopped 13:58:41 [facility] Findings: MVD- PCI performed (see procedure note) 13:58:43 Operative report dictated upon procedure completion. 13:58:43 See physician's report for complete and final results. 13:58:50 Report given to [facility]. 13:58:53 Patient transfered to [facility] with Stretcher. 13:58:55 Procedure ended. 13:58:55 Full Disclosure recording stopped 13:59:05 ACC-PCI Only Patient was given prescriptions, or instructed by Jair Mayer MD to start/continue the following medications upon discharge: Plavix 13:59:06 End room use (Document Last) 14:03:06 Plavix 600 mg P.O. was administered by Rogelio Stevenson RN; for antiplatelet therapy; Verbal order read back and verified. Intervention Summary Intervention Notes Time ActionType Lesion and Equipment Used Action# Pressure Duration Attributes 13:51:24 [address] stent Prox RCA MENDOZA OTW 3.0 x 1 14 00:30 12 stent ([id number]) 13:55:28 Place stent Prox RCA MENDOZA RX 3.0 x 2 14 00:30 12 stent ([id number]) Device Usage Item Name Manufacture Quantity Catalog [facility] Lot# / Number Charge Number Stock Stock Serial# Code ACIST Syringe Acist 1 79376 255818 327597 105831 20 (51179) Medical Systems Inc Medline Cath Medline 1 [id number] 746498 77627 192317 5 Pack ([id number]) Bag Decanter Microtek 1 2002S 942827 88655 124945 5 (2001S) Medical Inc. ACIST Hand Acist 1 33000 553901 651049 244076 5 Control Medical (60648) Systems Inc ACIST Manifold Acist 1 27114 640859 225345 767896 5 (25062) Medical Systems Inc Tegaderm 4 x 4 3M 1 1626W 344901 244050 379417 5 (1626W) MBrace Wrist Advanced 1 140-0250-00 612513 40543 023807 5 Support Vascular ([id number]) Dynamics SHEATH 6FR Cardinal 1 9935917 411078 1902700 298153 5 RAIN (5955915) [facility] EMERALD Guide Cardinal 1 100-483 602495 084852 402283 5 Wire (529-383) [facility] DIAGNOSTIC Terumo 1 63-7877 716858 863970 342658 5 [place] 110cm 5 Fr catheter (636611) GUIDE 6FR Cardinal 1 81297797 807071 009016 767061 10 XBLAD 3.5 Health catheter (96201632) GUIDE 6FR HS I Medtronic 1 LA6HSI 616602 85534 676492 1 catheter (LA6HSI) SHEATH 6FR Terumo 1 VIL059 009564 715372 624568 40 [place] (BJU238) INFLATOR Merit Merit 1 AJ0513 879445 660270 440923 15 ISBX (US4872) WHISPER 300cm [place] 1 [id number] 757557 052116 759769 5 guide wire Vascular (0773406KC) SHEATH 6FR Terumo 1 RSR01 641023 50578 251397 5 Destination (RSR01) DIAGNOSTIC JL Cardinal 1 004661S 742020 546999 197880 5 5 5Fr catheter Health (902573E) DIAGNOSTIC Cardinal 1 859857Q 145999 131403 911485 5 Pigtail 5Fr Health catheter (826413S) GUIDE 6FR HS I Medtronic 1 [id number] 001387 24662 254153 1 SH catheter (JT1PBYTS) MENDOZA OTW 3.0 x Medtronic 1 [id number] 824425 5929226 364339 5 [id number] 12 stent ([id number]) MENDOZA RX 3.0 x Medtronic 1 [id number] 257750 9856406 428195 5 [id number] 12 stent ([id number]) ZEPHYR REGULAR Cardinal 1 180451 205527 4830408 301882 5 TR BAND Health (181006) EXOSEAL 6Fr Cardinal 1 EX600 447882 998754 723605 10 (EX600) Health Signature Audit [place] Stage Time Signature Unsigned Intra-Procedure 07/25/2019 Marlen Kaplan 2:06:42 PM RT(R) Intra-Procedure 07/25/2019 Rogelio Stevenson RN 2:07:53 PM Intra-Procedure 07/25/2019 Jair Miranda 2:08:17 PM Rahat FLOWERS Signatures Performing Physician : Signature : Jair Mayer MD Date : Time : Monitor : Shahida Darian Signature : RT Date : Time : Nurse : Buffie Stevenson RN Signature : Date : Time : [address] [place] [address]
[2019-07-24 04:38] LABS: BASOPHILS 0.2 % (0-2); EOSINOPHILS 0.6 % (0-7); HEMATOCRIT 44.2 % (42.0-54.0); HEMOGLOBIN 14.6 g/dL (13.5-17.5); IMMATURE GRANULOCYTES 0.2 % (0-5); LYMPHOCYTES 16.8 % (15-50); MCH 32.8 pg (26.0-34.0); MCV 99.3 fL (80.0-100.0); MONOCYTES 9.4 % (2-11); NEUTROPHILS 72.8 % (40-80); PLATELET COUNT 205 10x3/uL (130-400); RBC 4.45 10x6/uL (4.20-6.10); RDW 12.2 % (11.5-14.5); WBC 9.3 10x3/uL (4.8-10.8)
[2019-07-24 04:40] LABS: CALC OSMOLALITY 284 mosm/kg (275-300); CALCIUM 8.7 mg/dL (8.5-10.1); CHLORIDE - SERUM 107 mmol/L (98-107); CREATININE - SERUM 0.9 mg/dL (0.6-1.3); GLUCOSE 165 mg/dL (74-106); POTASSIUM - SERUM 4.5 mmol/L (3.5-5.1); SODIUM 141 mmol/L (136-145); UREA NITROGEN 12 mg/dL (7-18); eGFR NON AFRICAN AMERICAN 88 mL/min (90-120)
[2019-07-24 04:44] LABS: APTT 26.9 SECONDS (22.8-39.4); PROTIME 12.7 SECONDS (11.6-15.0)
[2019-07-24 04:55] LABS: D-DIMER-QUANTITATIVE 0.31 ug/mLFEU (0.20-0.54)
[2019-07-24 05:00] LABS: ALBUMIN 3.7 g/dL (3.4-5.0); ALKALINE PHOSPHATASE 44 U/L (46-116); ALT (SGPT) 19 U/L (10-68); BILIRUBIN - TOTAL 0.65 mg/dL (0.2-1.3); CKMB 1.5 U/L (0.0-3.6); CREATINE KINASE 98 UL (21-232); MAGNESIUM - SERUM 1.9 mg/dL (1.8-2.4); PROTEIN - SERUM 7.3 g/dL (6.4-8.2); TROPONIN-I < 0.017 ng/mL (0.000-0.060)
[2019-07-24 06:28] VITALS: BP 114/61; Ht 177.8 cm; Wt 83.6 kg
--- NOTE | 2019-07-24 07:55 | NUR ---
PT RESTING. DENIES NEEDS OR PAIN AT THIS TIME. RR EVEN AND UNLABORED. BED IN LOWEST POSITION. CALL LIGHT WITHIN REACH. CHRYSTAL CONTINUE TO MONITOR.
[2019-07-24 08:00] VITALS: BP 106/63
[2019-07-24 12:00] VITALS: BP 127/65
[2019-07-24 12:44] LABS: CHOL - HDL RATIO 5.1 ratio (2.3-4.9); LDL-HDL RATIO 3.8 ratio (1.5-3.5)
--- NOTE | 2019-07-24 17:28 | NUR ---
I have reviewed this patient and I concur with the Shift Assessment completed by the Licensed Practical Nurse today this shift.
[2019-07-24 20:00] VITALS: BP 126/55
[2019-07-25] VITALS: BP 115/52
[2019-07-25 04:30] VITALS: BP 103/55
[2019-07-25 07:01] LABS: ALBUMIN 3.7 g/dL (3.4-5.0); ALKALINE PHOSPHATASE 42 U/L (46-116); ALT (SGPT) 19 U/L (10-68); BILIRUBIN - TOTAL 0.46 mg/dL (0.2-1.3); CALC OSMOLALITY 284 mosm/kg (275-300); CALCIUM 8.8 mg/dL (8.5-10.1); CARBON DIOXIDE 28.4 mmol/L (21.0-32.0); CHLORIDE - SERUM 106 mmol/L (98-107); GLUCOSE 140 mg/dL (74-106); MAGNESIUM - SERUM 2.1 mg/dL (1.8-2.4); PHOSPHOROUS 3.2 mg/dL (2.5-4.9); POTASSIUM - SERUM 4.8 mmol/L (3.5-5.1); PROTEIN - SERUM 6.8 g/dL (6.4-8.2); SODIUM 142 mmol/L (136-145); UREA NITROGEN 13 mg/dL (7-18); eGFR NON AFRICAN AMERICAN 78 mL/min (90-120)
[2019-07-25 07:22] LABS: HEMOGLOBIN 14.3 g/dL (13.5-17.5); LYMPHOCYTES 24.7 % (15-50); MCH 33.3 pg (26.0-34.0); MCV 97.7 fL (80.0-100.0); MEAN PLATELET VOLUME 9.9 fL (7.4-10.4); NEUTROPHILS 63.6 % (40-80); PLATELET COUNT 174 10x3/uL (130-400); WBC 5.3 10x3/uL (4.8-10.8)
[2019-07-25 08:00] VITALS: BP 130/67
--- NOTE | 2019-07-25 08:24 | NUR ---
ASSESSMENT DONE. DENIES NEEDS
[2019-07-25 12:00] VITALS: BP 116/67
--- NOTE | 2019-07-25 12:45 | NUR ---
TO TOWBOAT PILOT PER BED
--- NOTE | 2019-07-25 14:25 | NUR ---
RETURN FROM PROFESSOR OF COMMUNICATION AND WRITING PER BED. Z-BAND TO RT WRIST. RT GROIN DRSG CLEAR, PULSE PALP
[2019-07-25] MEDS ORDERED: PLAVIX75 MG PO (15:54)
--- NOTE | 2019-07-25 16:17 | NUR ---
PLAVIX 75 MG # 75 WITH 5 REFILLS TO ALIRIO LING AND SPOKE TO ABDIEL- PHARMACIST.
[2019-07-25 16:47] VITALS: BP 153/80
--- NOTE | 2019-07-25 17:24 | MORECARE ---
CASE MANAGEMENT DISCHARGE SUMMARY PATIENT: KARYN ARCOS UNIT: [id number] ADM DATE: 07/24/19 AGE: 69 : [birth year] SEX: M ROOM/BED: D.2133 AUTHOR: WINNIE CRUZ PHYSICIAN: REFERRING PHYSICIAN: DANYEL AUSTIN MD DATE OF SERVICE: 07/25/19 Discharge Plan Patient Name: KARYN ARCOS Facility: [facility]:[place] : 1950 Planned Disposition: Home Anticipated Discharge Date: 07/25/19 Discharge Date: Expected LOS: 1 Initial Reviewer: [email or web address] Initial Review Date: 07/24/2019 Generated: 07/25/19 6:23 pm Coverage Notice Reviewer: [email or web address] Carrie Rincon Notice Issued Date-Time: 07/24/2019 14:40 Notice Type: Medicare Outpatient Observation Notice Notice Delivered To: Patient Relationship to Patient: Self Electrical Engineering Manager Name: Delivery Method: HAND - Hand Delivered Adriana Days: Prior Verbal Notification: Recipient Understood Notice: Yes Recipient Signature: Yes Med Rec Note Co-signed by Attending: Coverage Notice Comment: ALBERT DISCUSSED IN THE PRESENCE OF PTS SERENA AND SON PRIETO AFTER VERBAL PERMISSION OBTAINED. Patient Name: KARYN ARCOS Page [phone] at 1724 All edits/amendments must be made on the electronic document DICTATION DATE: 07/25/191722 GAS REFRIGERATOR SERVICER: ZOEY 07/25/191722 RPT#: [id number] DC DATE: STATUS: ADM IN [facility] [address] [place] [address] END OF REPORT
--- NOTE | 2019-07-25 17:44 | NUR ---
I have reviewed this patient and I concur with the Shift Assessment completed by the Licensed Practical Nurse today this shift.
--- NOTE | 2019-07-25 18:20 | NUR ---
DC GIVEN TO PT
--- NOTE | 2019-07-29 08:48 | EC ---
PATIENT:KARYN ARCOS DATE OF SERVICE: 07/24/19 SEX: M MEDICAL RECORD: [id number] DATE OF : 46 LOCATION:D.OPS AGE OF PATIENT: 69 ADMISSION DATE: 07/24/19 REFERRING PHYSICIAN: INTERPRETING PHYSICIAN: YONI KINGSTON MD ECHOCARDIOGRAM REPORT ECHO CHARGES 4 ECHO COMPLETE Date: 07/24/19 CLINICAL DIAGNOSIS: CP ECHOCARDIOGRAPHIC MEASUREMENTS (adult normal given) AC root (d.<3.7cm) 3.3 cm LV Septum d (<1.2 cm> 1.8 cm Valve Excursion 2.2 cm LV Septum (systole) 2.5 cm Left Atria (s.<4.0cm> 4.8 cm LVPW d(<1.2cm) 1.6 cm RV (d.<2.3cm) 2.7 cm LVPW (sytole) 2.3 cm LV diastole(<5.6CM) 5.0 cm MV E-F(>70mm/sec) cm LV systole 3.0 cm LVOT Diameter 2.2 cm MV exc.(>10mm) cm Est.ejection fraction (50-75%) % DOPPLER: LVIT cm/sec A 60.0 cm/sec E 86.0 cm/sec LA cm/sec RVSP 19.0 mmHg LVOT 122 cm/sec AOP1/2T m/s Asc. Ao 158 cm/sec RVOT 59.0 cm/sec RA cm/sec PA 158 cm/sec AV Gradient Peak 10.0 mmHg AV Mean 4.9 mmHg AV Area 2.7 cm MV Gradient Peak 4.3 mmHg MV Mean 1.4 mmHg MV Area cm COMMENTS: Cryptologist: 1 KRISTIAN BIRMINGHAMOE Cannery Tender Engineer: 3 Dr. Walter TAPE# PACS Pericardial Effusion N DATE OF SERVICE: Adequate 2D, color flow, spectral Doppler, and M-mode. LVH is present. LV internal dimension is normal. Wall motion is normal. EF 55%. Aortic valve is tricuspid and no evidence of stenosis on Doppler interrogation. Left atrium is dilated 4.8 cm. Mitral valve shows no prolapse. Trace MR. Right-sided chambers are grossly normal. Mild TR. TRANSINT:[id number] Voice Confirmation ID: [id number] DOCUMENT ID: [id number] ECHOCARDIOGRAM REPORT [id number] ISRRAEL,YONI OZUNA MD at 0848 CC: [id number] DICTATION DATE: 07/24/19 152 LIQUOR TESTER: 07/24/19 1745 DEP CLI 07/25/19 [facility] [address] [place] [address]
--- NOTE | 2019-07-29 08:49 | OP ---
PATIENT NAME: KARYN ARCOS MEDICAL RECORD: [id number] :46 LOCATION:[facility] ADMISSION DATE: SURGEON: YONI KINGSTON MD DATE OF OPERATION: 07/25/2019 PROCEDURE: Left heart catheterization, selective coronary angiography, right femoral artery approach. CATHETERS: A 5-Polish sheath, 5/4 left and right Juan, 5/4 pig. The procedure was well tolerated. The patient was returned to [place]. Sheath was removed. ExoSeal device was placed. FINDINGS: Left ventriculography in 30-degree CORTES view: Normal wall motion and normal systolic function. CORONARY ANATOMY: LEFT MAIN: Left main is free of disease. LAD: Free of disease in the diagonal system. CIRCUMFLEX: Free of disease in the marginal system. RIGHT CORONARY ARTERY: Dominant artery shows an ostial stenosis of 80% as well as a proximal one-third 80% sequential. IMPRESSION: Unstable angina with disease of the right coronary, including ostial right. PLAN: Intervention momentarily. DESCRIPTION OF PROCEDURE: After a 5-Polish sheath was exchanged for a long 6-Polish sheath secondary to tortuosity of the iliac, hockey stick with side holes provided good guide catheter support followed by 300 cm Whisper wire. Stents were placed in the following fashion: 3.0 x 12 distally at the stenosis and a 3.0 x 12 ostial stenosis addressed with same up to 14 atmospheres for 45 seconds. Final angiography shows excellent resolution of 2 sequential right coronary lesions. FERNANDA flow was 3 throughout the procedure. Sheath was closed with ExoSeal device. Plavix was loaded in the lab. TRANSINT:[id number] Voice Confirmation ID: [id number] DOCUMENT ID: [id number] YONI KINGSTON MD at 0849 CC: [id number] DICTATION DATE: 07/25/19 1422 WREATH MACHINE TENDER: 07/25/19 1538 DEP CLI 07/25/19 [place] [id number] [facility] [address]
== END 2019-07-25 18:45 | disposition home or self-care (01) ==
LOC: OBSVTIME → D.ER 03:48 → D.OPS 03:48 → D.M2 05:25 → D.ER 05:25 → D.M2 05:25 → OBSVTIME 05:25 → D.ER 05:55 → EDSTATUS 07-25 08:30 → D.M2 07-25 18:45 → D.OPS 07-25 18:45 → D.M2 07-25 18:45
PROVIDERS: Family Medicine; Internal Medicine Cardiovascular Disease; ATTEND Family Medicine Adult Medicine
DX: I25.110 Atherosclerotic heart disease of native coronary artery with unstable angina pectoris (principal); R73.03 Prediabetes; K51.90 Ulcerative colitis, unspecified, without complications
CPT/HCPCS: 93458; C9600

== ENCOUNTER → 2019-09-17 08:53 | Outpatient (CLI) | payer MEDICARE, BC ==
[2019-07-24 06:28] VITALS: BMI 26.4
[~2019-09-17 08:53] MED LIST changes: +PLAVIX75 MG PO
[2019-09-17 09:17] LABS: BASOPHILS 0.3 % (0-2); HEMATOCRIT 46.7 % (42.0-54.0); HEMOGLOBIN 15.8 g/dL (13.5-17.5); IMMATURE GRANULOCYTES 0.3 % (0-5); LYMPHOCYTES 19.9 % (15-50); MCH 32.3 pg (26.0-34.0); MCHC 33.8 g/dL (31.0-37.0); MCV 95.5 fL (80.0-100.0); MEAN PLATELET VOLUME 9.8 fL (7.4-10.4); MONOCYTES 10.2 % (2-11); NEUTROPHILS 68.3 % (40-80); RBC 4.89 10x6/uL (4.20-6.10); RDW 12.4 % (11.5-14.5); WBC 7.7 10x3/uL (4.8-10.8)
[2019-09-17 09:19] LABS: PLATELET COUNT 230 10x3/uL (130-400)
[2019-09-17 09:29] LABS: ALBUMIN 4.1 g/dL (3.4-5.0); BILIRUBIN - DIRECT 0.12 mg/dL (0.00-0.30); BILIRUBIN - INDIRECT 0.38 mg/dL (0.00-1.00); BILIRUBIN - TOTAL 0.5 mg/dL (0.2-1.3); PROTEIN - SERUM 8.1 g/dL (6.4-8.2)
[2019-09-17 11:24] LABS: ERYTHROCYTE SEDIMENTATION RATE 3 mm/hr (0-20)
== END | disposition home or self-care (01) ==
LOC: D.LAB 08:53
PROVIDERS: ATTEND Internal Medicine Gastroenterology
DX: K51.90 Ulcerative colitis, unspecified, without complications (principal)

== ENCOUNTER → 2020-01-29 10:40 | Outpatient (CLI) | payer MEDICARE, BC ==
[2019-07-24 06:28] VITALS: BMI 26.4
== END | disposition home or self-care (01) ==
LOC: D.US 10:40
PROVIDERS: ATTEND Internal Medicine Interventional Cardiology
DX: I67.9 Cerebrovascular disease, unspecified (principal)

== ENCOUNTER → 2020-03-17 08:23 | Outpatient (CLI) | payer MEDICARE, BC ==
[2019-07-24 06:28] VITALS: BMI 26.4
[2020-03-17 08:43] LABS: HEMATOCRIT 45.4 % (42.0-54.0); HEMOGLOBIN 15.2 g/dL (13.5-17.5); LYMPHOCYTES 22.1 % (15-50); MCH 31.7 pg (26.0-34.0); MCHC 33.5 g/dL (31.0-37.0); MCV 94.8 fL (80.0-100.0); MEAN PLATELET VOLUME 9.1 fL (7.4-10.4); NEUTROPHILS 64.8 % (40-80); PLATELET COUNT 223 10x3/uL (130-400); RBC 4.79 10x6/uL (4.20-6.10); RDW 12.9 % (11.5-14.5); WBC 6.7 10x3/uL (4.8-10.8)
[2020-03-17 08:51] LABS: ALBUMIN 3.9 g/dL (3.4-5.0); BILIRUBIN - DIRECT 0.11 mg/dL (0.00-0.30); BILIRUBIN - INDIRECT 0.21 mg/dL (0.00-1.00); BILIRUBIN - TOTAL 0.32 mg/dL (0.2-1.3); PROTEIN - SERUM 7.7 g/dL (6.4-8.2)
== END | disposition home or self-care (01) ==
LOC: D.LAB 08:23
PROVIDERS: ATTEND Internal Medicine Gastroenterology
DX: K51.90 Ulcerative colitis, unspecified, without complications (principal); Z79.899 Other long term (current) drug therapy

== ENCOUNTER → 2020-06-17 09:52 | Outpatient (CLI) | payer MEDICARE, BC ==
[2019-07-24 06:28] VITALS: BMI 26.4
[2020-06-17 10:25] LABS: BILIRUBIN - DIRECT 0.1 mg/dL (0.00-0.30); BILIRUBIN - INDIRECT 0.42 mg/dL (0.00-1.00); BILIRUBIN - TOTAL 0.52 mg/dL (0.2-1.3); PROTEIN - SERUM 7.7 g/dL (6.4-8.2)
[2020-06-17 10:32] LABS: HEMATOCRIT 44.3 % (42.0-54.0); HEMOGLOBIN 14.3 g/dL (13.5-17.5); LYMPHOCYTES 24.6 % (15-50); MCHC 32.3 g/dL (31.0-37.0); MCV 95.9 fL (80.0-100.0); MEAN PLATELET VOLUME 9.1 fL (7.4-10.4); PLATELET COUNT 218 10x3/uL (130-400); RBC 4.62 10x6/uL (4.20-6.10); RDW 13.1 % (11.5-14.5); WBC 5.3 10x3/uL (4.8-10.8)
== END | disposition home or self-care (01) ==
LOC: D.LAB 09:52
PROVIDERS: ATTEND Internal Medicine Gastroenterology
DX: K51.90 Ulcerative colitis, unspecified, without complications (principal); Z79.899 Other long term (current) drug therapy

== ENCOUNTER → 2020-12-16 10:28 | Outpatient (CLI) | payer MEDICARE, BC ==
[2019-07-24 06:28] VITALS: BMI 26.4
[2020-12-16 10:49] LABS: BASOPHILS 0.3 % (0-2); EOSINOPHILS 0.9 % (0-7); HEMATOCRIT 44.5 % (42.0-54.0); HEMOGLOBIN 14.8 g/dL (13.5-17.5); IMMATURE GRANULOCYTES 0.2 % (0-5); LYMPHOCYTE ABS# 1.51 10x3/uL (1.32-3.57); LYMPHOCYTES 23.6 % (15-50); MCH 32.2 pg (26.0-34.0); MCHC 33.3 g/dL (31.0-37.0); MCV 96.9 fL (80.0-100.0); MEAN PLATELET VOLUME 10.2 fL (7.4-10.4); MONOCYTES 11.9 % (2-11); NEUTROPHIL ABS# 4.05 10x3/uL (1.78-5.38); NEUTROPHILS 63.1 % (40-80); PLATELET COUNT 227 10x3/uL (130-400); RBC 4.59 10x6/uL (4.20-6.10); RDW 12.8 % (11.5-14.5); WBC 6.4 10x3/uL (4.8-10.8)
[2020-12-16 11:05] LABS: BILIRUBIN - DIRECT 0.1 mg/dL (0.00-0.30); BILIRUBIN - INDIRECT 0.37 mg/dL (0.00-1.00); BILIRUBIN - TOTAL 0.47 mg/dL (0.2-1.3); PROTEIN - SERUM 7.9 g/dL (6.4-8.2)
== END | disposition home or self-care (01) ==
LOC: D.LAB 10:28
PROVIDERS: ATTEND Internal Medicine Gastroenterology
DX: K51.90 Ulcerative colitis, unspecified, without complications (principal); Z79.899 Other long term (current) drug therapy